=== PATIENT | male | born 1975 | race Caucasian/White ===

== ENCOUNTER 2018-09-26 12:39 | Inpatient (IN) | payer SELFPAY ==
--- NOTE | 2018-09-26 13:08 | ER Document Report ---
ED Medical Screen (RME) - General Chief Complaint: Shortness Of Breath Stated Complaint: SHORTNESS OF BREATH Time Seen by Provider: 09/26/18 13:06 Primary Care Provider: STEVIE BERRY [Primary Care Provider] - Follow up as needed Notes: Patient says he started feeling bad Thursday. Has had lower posterior thoracic back pain bilaterally since Thursday. Yesterday, Thursday, he was unable to go to work. [place] short of breath. Has little cough, but no phlegm produced. Says whenever he moves his head, he gets dizzy. Feels aching in all of his joints. No vomiting. Had some diarrhea yesterday and feels "bloated". No UTI symptoms. Has not had a fever, but has felt chills. He also has a little bit of a headache. Has not been exposed to anybody with major illness or the flu. No history of any significant surgeries except for trauma injury to his leg. On no regular prescription medications. In triage, heart rate 121. TRAVEL OUTSIDE OF THE [place] IN LAST 30 DAYS: No - Related Data Allergies/Adverse Reactions: No Known Allergies Allergy (Verified 06/23/12 11:11) Past Medical History - Past Medical History Cardiac Medical History: Denies: Hx Coronary Artery Disease, Hx Hypertension Pulmonary Medical History: Denies: Hx Asthma Endocrine Medical History: Denies: Hx Diabetes Mellitus Type 1, Hx Diabetes Mellitus Type 2 Renal/ Medical History: Denies: Hx Peritoneal Dialysis Traumatic Medical History: Reports: Hx Fractures Past Surgical History: Reports: Hx Orthopedic Surgery Physical Exam - Vital signs Vitals: Temp Pulse Resp BP Pulse Ox 98.8 F 121 H 18 130/84 H 100 09/26/18 12:46 09/26/18 12:46 09/26/18 12:46 09/26/18 12:46 09/26/18 12:46 Course - Vital Signs Vital signs: Temp Pulse Resp BP Pulse Ox 98.8 F 121 H 18 130/84 H 100 09/26/18 12:46 09/26/18 12:46 09/26/18 12:46 09/26/18 12:46 09/26/18 12:46 Doctor's Discharge - Discharge Referrals: STEVIE BERRY [Primary Care Provider] - Follow up as needed
[2018-09-26 13:49] LABS: ABSOLUTE BASOPHILS # (AUTO) 0.1 10^3/uL (0.0-0.2); ABSOLUTE EOSINOPHILS # (AUTO) 0.2 10^3/uL (0.0-0.6); ABSOLUTE LYMPHOCYTES (AUTO) 1.8 10^3/uL (0.5-4.7); ABSOLUTE MONOCYTES (AUTO) 1.1 10^3/uL (0.1-1.4); ABSOLUTE NEUT (AUTO) 6.1 10^3/uL (1.7-8.2); BASOPHILS % (AUTO) 0.7 % (0-2); EOSINOPHILS % (AUTO) 2.1 % (0-6); HEMATOCRIT 45.7 % (37.9-51.0); HEMOGLOBIN 15.8 g/dL (13.5-17.0); LYMPHOCYTES % (AUTO) 19.8 % (13-45); MEAN CORPUSCULAR HEMOGLOBIN 31.2 pg (27.0-33.4); MEAN CORPUSCULAR HGB CONC 34.5 g/dL (32.0-36.0); MEAN CORPUSCULAR VOLUME 90 fl (80-97); MONOCYTES % (AUTO) 12.2 % (3-13); PLATELET COUNT 197 10^3/uL (150-450); RED BLOOD COUNT 5.06 10^6/uL (4.35-5.55); RED CELL DISTRIBUTION WIDTH 12.7 % (11.5-14.0); SEGMENTED NEUTROPHILS % (AUTO) 65.2 % (42-78); TOTAL CELLS COUNTED % (AUTO) 100 %; WHITE BLOOD COUNT 9.3 10^3/uL (4.0-10.5)
--- NOTE | 2018-09-26 13:55 | RADIOLOGY REPORT (SQ) ---
EXAM DESCRIPTION: CHEST 2 VIEWS COMPLETED DATE/TIME: 09/26/2018 1:47 pm REASON FOR STUDY: Lower posterior thoracic back pain bilateral COMPARISON: None. EXAM PARAMETERS: NUMBER OF VIEWS: two views TECHNIQUE: Digital Frontal and Lateral radiographic views of the chest acquired. RADIATION DOSE: NA LIMITATIONS: none FINDINGS: LUNGS AND PLEURA: No opacities, masses or pneumothorax. No pleural effusion. MEDIASTINUM AND HILAR STRUCTURES: No masses or contour abnormalities. HEART AND VASCULAR STRUCTURES: Heart normal size. No evidence for failure. BONES: No acute findings. HARDWARE: None in the chest. OTHER: No other significant finding. IMPRESSION: No acute abnormality of the lungs. No radiographic findings to explain back pain. Cons ider dedicated imaging of the spine. TECHNICAL DOCUMENTATION: JOB ID: [id number] [employer]- All Rights Reserved Reading location - IP/workstation name: [email or web address]
[2018-09-26 13:57] LABS: ALANINE AMINOTRANSFERASE 70 U/L (21-72); ALBUMIN 4.4 g/dL (3.5-5.0); ALKALINE PHOSPHATASE 77 U/L (38-126); ANION GAP 12 (5-19); ASPARTATE AMINO TRANSFERASE 55 U/L (17-59); BILIRUBIN,DIRECT 0.3 mg/dL (0.0-0.4); BILIRUBIN,TOTAL 0.5 mg/dL (0.2-1.3); BLOOD UREA NITROGEN 8 mg/dL (7-20); CALCIUM 9.4 mg/dL (8.4-10.2); CARBON DIOXIDE 27 mmol/L (22-30); CHLORIDE 99 mmol/L (98-107); CREATINE KINASE 116 U/L (55-170); GLUCOSE 99 mg/dL (75-110); LIPASE 313.9 U/L (23-300); POTASSIUM 4.1 mmol/L (3.6-5.0); SODIUM 137.6 mmol/L (137-145); TOTAL PROTEIN 7.1 g/dL (6.3-8.2)
--- NOTE | 2018-09-26 14:20 | ER Document Report ---
ED General - General Chief Complaint: Shortness Of Breath Stated Complaint: SHORTNESS OF BREATH Time Seen by Provider: 09/26/18 13:06 Primary Care Provider: STEVIE BERRY [NO LOCAL MD] - Follow up as needed TRAVEL OUTSIDE OF THE [place] IN LAST 30 DAYS: No - HPI Notes: Patient is a 43-year-old male that presents to the emergency department for chief complaint of shortness of breath and back pain. Patient states 3 days ago he started having achy pain in his bilateral thoracic back. The pain is worse with movement and deep inspiration. The pain radiates down towards his tailbone when the pain gets severe. He reports associated shortness of breath at that time. He states that shortness of breath has continued to worsen. He denies any chest pain. States the pain feels like a pressure and dullness. He reports a mild nonproductive cough but denies any fevers or chills. He did recently start smoking again after being off of cigarettes for 5 years. He endorses daily alcohol consumption of 2-3 beers but denies any other chronic medical issues. He denies any recent surgery or immobilizations. Past Medical History: Negative Past Surgical History: Left tibial fracture repair Social History: 2-3 beers daily, daily tobacco, denies illicit drug use Family History: Reviewed and noncontributory for presenting illness Allergies: Reviewed, see documented allergy list. REVIEW OF SYSTEMS: CONSTITUTIONAL : No fever No chills No diaphoresis No recent illness EENT: No vision changes No congestion No sore throat CARDIOVASCULAR: No chest pain No palpitations RESPIRATORY: shortness of breath cough difficulty breathing GASTROINTESTINAL: No abdominal pain No nausea No vomiting No diarrhea GENITOURINARY: No dysuria No hematuria No difficulty urinating MUSCULOSKELETAL: back pain No leg pain No arm pain SKIN: No rashes No lesions LYMPHATIC: No swollen, enlarged glands. NEUROLOGICAL: No lightheadedness No headache No weakness No paresthesias PSYCHIATRIC: No anxiety No depression PHYSICAL EXAMINATION: Vital signs reviewed, nursing noted reviewed. GENERAL: Well-appearing, well-nourished and in no acute distress. HEAD: Atraumatic, normocephalic. EYES: Eyes appear normal, extraocular movements intact, sclera anicteric, conjunctiva are normal. ENT: nares patent, oropharynx clear without exudates. Moist mucous membranes. NECK: Normal range of motion, supple without lymphadenopathy LUNGS: Breath sounds clear to auscultation bilaterally but mildly diminished bilaterally. No accessory muscle use or tachypnea. Back: No midline spinal tenderness in the cervical, thoracic, or lumbar spine. Very mild bilateral paraspinal muscle tenderness in the thoracic region. No appreciable muscle spasms. HEART: Tachycardic rate and regular rhythm without murmurs. +2/4 bilateral radial and DP pulses ABDOMEN: Soft, nontender, normoactive bowel sounds. No rebound, guarding, or rigidity. No masses appreciated. EXTREMITIES: Nontender, good range of motion, no pitting or edema. NEUROLOGICAL: No focal neurological deficits. Moves all extremities spontaneously Motor and sensory grossly intact on exam. PSYCH: Normal mood, normal affect. SKIN: Warm, Dry, normal turgor, no rashes or lesions noted on exposed skin - Related Data Allergies/Adverse Reactions: No Known Allergies Allergy (Verified 06/23/12 11:11) Past Medical History - Social History Smoking Status: Current Every Day Smoker Family History: Reviewed & Not Pertinent Patient has suicidal ideation: No Patient has homicidal ideation: No - Past Medical History Cardiac Medical History: Denies: Hx Coronary Artery Disease, Hx Hypertension Pulmonary Medical History: Denies: Hx Asthma Endocrine Medical History: Denies: Hx Diabetes Mellitus Type 1, Hx Diabetes Me llitus Type 2 Renal/ Medical History: Denies: Hx Peritoneal Dialysis Traumatic Medical History: Reports: Hx Fractures Past Surgical History: Reports: Hx Orthopedic Surgery Physical Exam - Vital signs Vitals: Temp Pulse Resp BP Pulse Ox 98.8 F 121 H 18 130/84 H 100 09/26/18 12:46 09/26/18 12:46 09/26/18 12:46 09/26/18 12:46 09/26/18 12:46 Course - Re-evaluation Re-evalutation: 09/26/18 14:21 Vitals reviewed. Nursing notes reviewed. Patient has declined wanting any pain medication. 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 Patient has denied any chest pain. His EKG shows a sinus tachycardia with no ST elevations. Patient does have a slightly elevated d-dimer and troponin. With his symptoms radiating into his back down to his tailbone I am clinically concerned for possible aortic diss ection and aspirin will be held until CT imaging can be obtained. Patient symptoms may also be related to pulmonary embolism however he does not have any known risk factors for PE. He is in no acute respiratory distress at this time. Chest x-ray shows no pneumothorax or other acute cardiopulmonary process. Patient awaiting CT scan currently. 09/26/18 15:[address] scan shows no acute aortic dissection or pulmonary embolism. He was given aspirin and started on heparin infusion for N STEMI with his elevated troponin. On reevaluation patient states his pain is improved but not completely gone. He still describing it as an aching in his back. He is denying any anterior chest pain. Patient was given sublingual nitro for pain control. I discussed his care with Dr. Floyd who will not accept admission to this hospital without a second troponin. Patient second troponin will be drawn in 30 minutes. 09/26/18 17:50 Patient's pain did completely resolve after 2 sublingual nitroglycerin. His second troponin is slightly decreased at 0.457. Dr. Allison accepts patient for admission. - Vital Signs Vital signs: Temp Pulse Resp BP Pulse Ox 98.8 F 121 H 24 H 105/68 98 09/26/18 12:46 09/26/18 12:46 09/26/18 17:01 09/26/18 17:01 09/26/18 17:01 - Laboratory Result Diagrams: 09/26/18 13:22 09/26/18 13:22 Laboratory results interpreted by me: 09/26/18 09/26/18 13:22 13:22 D-Dimer 0.53 H Lipase 313.9 H - EKG Interpretation by Me Additional EKG results interpreted by me: 09/26/18 14:22 Interpreted by myself 1330: Sinus tachycardia, rate 109, normal axis, no ectopy, no ST elevation Discharge - Discharge Clinical Impression: NSTEMI (non-ST elevated myocardial infarction) Condition: Stable Disposition: ADMITTED INPATIENT Admitting Provider: Hospitalist Unit Admitted: [facility]
--- NOTE | 2018-09-26 15:20 | RADIOLOGY REPORT (SQ) ---
EXAM DESCRIPTION: CTA CHEST COMPLETED DATE/TIME: 09/26/2018 2:57 pm REASON FOR STUDY: dissection studyBack pain COMPARISON: Same day CTA abdomen pelvis TECHNIQUE: CT scan of the chest performed using helical scanning technique with dynamic intravenous contrast injection. Images reviewed with lung, soft tissue and bone windows. Reconstructed coronal and sagittal MPR images reviewed. Additional 3 dimensional post-processing performed to develop Maximal Intensity Projection images ([place] P). All images stored on PACS. All CT scanners at this facility use dose modulation, iterative reconstruction, and/or weight based d osing when appropriate to reduce radiation dose to as low as reasonably achievable (ALARA). [facility]: Dose Right [facility]: CareDose [facility]: Dose Right [facility]: Teradose 4D [facility]: If You Can CONTRAST TYPE AND DOSE: 75 mL IV of Omnipaque 350- low osmolar. Contrast bolus optimized for the aorta. Not diagnostic for the pulmonary arteries. RENAL FUNCTION: BUN 8 creatinine 0.92 RADIATION DOSE: . LIMITATIONS: None. FINDINGS: LUNGS AND PLEURA: No masses, infiltrates, or pneumothorax. No pleural effusions or pleura l calcifications. AORTA AND GREAT VESSELS: Mild ectasia of the ascending aorta measuring 4.0 cm in transverse dimension . No dissection. HEART: No pericardial effusion. No significant coronary artery calcifications. PULMONARY ARTERIES: Contrast is not optimized for evaluation of the pulmonary arteries. HILAR AND MEDIASTINAL STRUCTURES: No identified masses or abnormal nodes. HARDWARE: None in the chest. UPPER ABDOMEN: See separate report of the CT of the abdomen. THYROID AND OTHER SOFT TISSUES: No masses. No adenopathy. BONES: Mild degenerative disc disease of the thoracic spine. No sinister bone lesion. 3D MIPS: Confirm above findings. OTHER: No other significant finding. IMPRESSION: 1. No aortic dissection. Mild ectasia of the ascending aorta measuring 4 cm in transverse dimension. 2. Otherwise, no acute findings of the chest. COMMENT: Quality ID # [id number]: Final reports with documentation of one or more dose reduction techniques (e.g., Automated exposure control, adjustment of the mA and/or kV according to patient size, use of iterative reconstruction technique) TECHNICAL DOCUMENTATION: JOB ID: [id number] [employer]- All Rights Reserved Reading location - IP/workstation name: [email or web address]
--- NOTE | 2018-09-26 15:21 | RADIOLOGY REPORT (SQ) ---
EXAM DESCRIPTION: CTA ABDOMEN/PELVIS W WO COMPLETED DATE/TIME: 09/26/2018 2:57 pm REASON FOR STUDY: DISSECTIONChest and back pain, clinical concern for dissection COMPARISON: Concurrent CTA chest TECHNIQUE: CT scan of the abdominal aorta extending to the iliac bifurcation performed with intraven ous contrast using helical scanning technique with dynamic intravenous contrast injection. Images rev iewed with lung, soft tissue, and bone windows. Reconstructed coronal and sagittal MPR images reviewe d. All images stored on PACS. Advanced 3D imaging as volume rendering, MIPS, SSD performed? yes All CT scanners at this facility use dose modulation, iterative reconstruction, and/or weight based d osing when appropriate to reduce radiation dose to as low as reasonably achievable (ALARA). [facility]: Dose Right [facility]: CareDose [facility]: Dose Right [facility]: Teradose 4D [facility]: [employer] CONTRAST TYPE AND DOSE: contrast/concentration: Isovue 350.00 mg/ml; Total Contrast Delivered: 75.0 ml; Total Saline Delivered: 75.0 ml 75 mL IV of Omnipaque 350- low osmolar. RENAL FUNCTION: BUN 8 creatinine 0.92 LIMITATIONS: None. FINDINGS: AORTA AND VESSELS: No aneurysm. No dissection. Minimal scattered calcified plaque. Renal arteries, SMA, celiac without stenosis. LUNG BASES: See concurrent CT chest LIVER: Normal size. No masses or dilated ducts. SPLEEN: Normal size. No focal lesions. PANCREAS: No masses. No significant calcifications. No adjacent inflammation or peripancreatic fluid collections. Pancreatic duct not dilated. GALLBLADDER: No identified stones by CT criteria. No inflammatory changes to suggest cholecystitis. ADRENAL GLANDS: No significant masses or asymmetry. RIGHT KIDNEY AND URETER: No mass, calculi or urinary tract obstruction. LEFT KIDNEY AND URETER: No mass, calculi or urinary tract obstruction. RETROPERITONEUM: No retroperitoneal adenopathy, hemorrhage or masses. BOWEL AND PERITONEAL CAVITY: No dilated loops of bowel. No masses or inflammatory changes. No free fluid or peritoneal masses. APPENDIX: Normal. ABDOMINAL WALL: No masses. No hernias. BONY STRUCTURES: Mild degenerative disc disease of the lumbar spine. No acute fracture. No sinister bone lesion. 3-D IMAGING: Confirms the above findings. OTHER: Bilaterally enlarged inguinal lymph nodes measuring upwards of 1.4 cm in short axis diameter. There is fat stranding surrounding the right inguinal lymph nodes. IMPRESSION: 1. No acute findings within the abdomen or pelvis. Specifically, no abdominal aortic dissection or a neurysm. 2. Nonspecific bilateral inguinal lymphadenopathy, as above. 3. Mild degenerative disc disease of the lumbar spine. TECHNICAL DOCUMENTATION: JOB ID: [id number] Quality ID # [id number]: Final reports with documentation of one or more dose reduction techniques (e.g., Au tomated exposure control, adjustment of the mA and/or kV according to patient size, use of iterative reconstruction technique) 2010 [employer]- All Rights Reserved Reading location - IP/workstation name: [email or web address]
[2018-09-26] MEDS ORDERED: ASPIRIN 81 MG TABLET, CHEWABLE PO ONE (15:30)
[2018-09-26] MEDS ORDERED: HEPARIN SOD (PORCINE) 1,000 UNIT/ML 10 ML VIAL IV ONE (15:30)
[2018-09-26] MEDS ORDERED: HEPARIN SODIUM,PORCINE/D5W 25,000 UNIT/250 ML RTUINJ IV PRN (15:30)
[2018-09-26 15:40] LABS: INTERNATIONAL RATION (INR) 0.85; PROTHROMBIN TIME 12.1 SEC (11.4-15.4)
[2018-09-26 15:41] LABS: PARTIAL THROMBOPLASTIN TIME 35.4 SEC (23.5-35.8)
[2018-09-26 16:35] LABS: APPEARANCE,URINE CLEAR; BILIRUBIN,URINE NEGATIVE (NEGATIVE); COLOR,URINE YELLOW; GLUCOSE, URINE NEGATIVE (NEGATIVE); KETONES,URINE NEGATIVE (NEGATIVE); LEUKOCYTE ESTERASE,URINE NEGATIVE (NEGATIVE); NITRITE,URINE NEGATIVE (NEGATIVE); PROTEIN,URINE NEGATIVE (NEGATIVE); URINE SPECIFIC GRAVITY 1.028; UROBILINOGEN,URINE NEGATIVE mg/dL (<2.0)
[2018-09-26] MEDS: NITROGLYCERIN 0.4 MG/TAB 25 TAB/BOTTLE SL PRN ×2 (16:47→16:53)
[2018-09-26] MEDS ORDERED: OXYCODONE-ACETAMINOPHEN 5-325 MG TABLET PO PRN (18:23)
[2018-09-26] MEDS ORDERED: ONDANSETRON HCL INJ/PF 4 MG/2 ML SDV IV PRN (18:23)
[2018-09-26] MEDS ORDERED: HEPARIN SOD (PORCINE) 1,000 UNIT/ML 10 ML VIAL IV PRN (18:31)
[2018-09-26] MEDS ORDERED: CLOPIDOGREL BISULFATE 300 MG TABLET PO ONE (18:40)
--- NOTE | 2018-09-26 18:40 | PDOC H&P ---
History of Present Illness Admission Date/PCP: 09/26/18 17:59 History of Present Illness: EDWIN RAMIREZ is a 43 year old male patient with no significant medical history presents with chief complaint of chest pain localized to his back between the shoulder blades which radiates to his tailbone. He denies any fever, chills, palpitation or diaphoresis. He endorses intermittent nonproductive cough. Patient reports quit smoking 5 years ago and he relapsed and about 2-3 months ago. He drinks alcohol 2-3 beers on a daily basis. He CT scan of the chest and abdomen and pelvis are unremarkable. His blood work shows troponin of 0.475 and and the second set 0.457. Patient has been started on heparin drip as a case of non-STEMI. Past Medical History Cardiac Medical History: Denies: Coronary Artery Disease, Hypertension Pulmonary Medical History: Denies: Asthma Endocrine Medical History: Denies: Diabetes Mellitus Type 1, Diabetes Mellitus Type 2 Past Surgical History Past Surgical History: Reports: Orthopedic Surgery Social History Smoking Status: Current Every Day Smoker - Advance Directive Resuscitation Status: Full Code Family History Family History: Reviewed & Not Pertinent, DM Parental Family History Reviewed: Yes Children Family History Reviewed: Yes Sibling(s) Family History Reviewed.: Yes Medication/Allergy Home Medications: Cyclobenzaprine HCl [Flexeril 10 Mg Tablet] 10 mg PO TID #30 tablet 06/23/12 Oxycodone HCl/Acetaminophen [Percocet 5-325 mg Tablet] 1 - 2 tab PO ASDIR PRN # 15 tablet 06/23/12 Allergies/Adverse Reactions: No Known Allergies Allergy (Verified 06/23/12 11:11) Review of Systems Constitutional: ABSENT: chills, fever(s), headache(s), weight gain, weight loss Eyes: ABSENT: visual disturbances Ears: ABSENT: hearing changes Cardiovascular: PRESENT: chest pain Respiratory: ABSENT: cough, hemoptysis Gastrointestinal: ABSENT: abdominal pain, constipation, diarrhea, hematemesis, hematochezia, nausea, vomiting Genitourinary: ABSENT: dysuria, hematuria Musculoskeletal: ABSENT: joint swelling Integumentary: ABSENT: rash, wounds Neurological: ABSENT: abnormal gait, abnormal speech, confusion, dizziness, focal weakness, syncope Psychiatric: ABSENT: anxiety, depression, homidical ideation, suicidal ideation Endocrine: ABSENT: cold intolerance, heat intolerance, polydipsia, polyuria Hematologic/Lymphatic: ABSENT: easy bleeding, easy bruising Physical Exam Vital Signs: Temp Pulse Resp BP Pulse Ox 98.7 F 121 H 21 H 108/82 98 09/26/18 18:19 09/26/18 12:46 09/26/18 18:01 09/26/18 18:00 09/26/18 18:01 Intake & Output 09/25/18 09/26/18 09/27/18 06:59 06:59 06:59 Weight 92.4 kg General appearance: PRESENT: no acute distress, well-developed, well-nourished Head exam: PRESENT: atraumatic, normocephalic Eye exam: PRESENT: conjunctiva pink, EOMI, PERRLA. ABSENT: scleral icterus Ear exam: PRESENT: normal external ear exam Mouth exam: PRESENT: moist, tongue midline Neck exam: ABSENT: carotid bruit, JVD, lymphadenopathy, thyromegaly Respiratory exam: PRESENT: clear to auscultation henrik. ABSENT: rales, rhonchi, wheezes Cardiovascular exam: PRESENT: RRR. ABSENT: diastolic murmur, rubs, systolic murmur Pulses: PRESENT: normal dorsalis pedis pul Vascular exam: PRESENT: normal capillary refill GI/Abdominal exam: PRESENT: normal bowel sounds, soft. ABSENT: distended, guarding, mass, organolmegaly, rebound, tenderness Rectal exam: PRESENT: deferred Extremities exam: PRESENT: full ROM. ABSENT: calf tenderness, clubbing, pedal edema Neurological exam: PRESENT: alert, awake, oriented to person, oriented to place, oriented to time, oriented to situation, CN II-XII grossly intact. ABSENT: motor sensory deficit Psychiatric exam: PRESENT: appropriate affect, normal mood. ABSENT: homicidal ideation, suicidal ideation Skin exam: PRESENT: dry, intact, warm. ABSENT: cyanosis, rash Results Laboratory Results: 09/26/18 13:22 09/26/18 13:22 09/26/18 09/26/18 09/26/18 13:22 13:22 16:10 WBC 9.3 RBC 5.06 Hgb 15.8 Hct 45.7 MCV 90 MCH 31.2 MCHC 34.5 RDW 12.7 Plt Count 197 Seg Neutrophils % 65.2 Lymphocytes % 19.8 Monocytes % 12.2 Eosinophils % 2.1 Basophils % 0.7 Absolute Neutrophils 6.1 Absolute Lymphocytes 1.8 Absolute Monocytes 1.1 Absolute Eosinophils 0.2 Absolute Basophils 0.1 Sodium 137.6 Potassium 4.1 Chloride 99 Carbon Dioxide 27 Anion Gap 12 BUN 8 Creatinine 0.92 Est GFR ( Amer) > 60 Est GFR (Non-Af Amer) > 60 Glucose 99 Calcium 9.4 Total Bilirubin 0.5 AST 55 ALT 70 Alkaline Phosphatase 77 Total Protein 7.1 Albumin 4.4 Lipase 313.9 H Urine Color YELLOW Urine Appearance CLEAR Urine pH 6.0 Ur Specific [place] 1.028 Urine Protein NEGATIVE Urine Glucose (UA) NEGATIVE Urine Ketones NEGATIVE Urine Blood NEGATIVE Urine Nitrite NEGATIVE Ur Leukocyte Esterase NEGATIVE Urine WBC (Auto) 0 Urine RBC (Auto) 1 09/26/18 09/26/18 09/26/18 13:22 13:22 16:52 Creatine Kinase 116 Troponin I 0.475 0.457 Impressions: Chest X-Ray 09/26/18 13:06 IMPRESSION: No acute abnormality of the lungs. No radiographic findings to explain back pain. Consider dedicated imaging of the spine. Chest/Abdomen CTA 09/26/18 14:05 IMPRESSION: 1. No aortic dissection. Mild ectasia of the ascending aorta measuring 4 cm in transverse dimension. 2. Otherwise, no acute findings of the chest. Abdomen/Pelvis CTA 09/26/18 14:20 IMPRESSION: 1. No acute findings within the abdomen or pelvis. Specifically, no abdominal aortic dissection or aneurysm. 2. Nonspecific bilateral inguinal lymphadenopathy, as above. 3. Mild degenerative disc disease of the lumbar spine. Assessment & Plan - Diagnosis (1) Non-STEMI (non-ST elevated myocardial infarction) Is this a current diagnosis for this admission?: Yes Plan: We will admit this patient was telemetry floor with inpatient status. I will continue the heparin drip. We will start him on Lipitor, metoprolol aspirin and Plavix. Stress test in a.m. Consult cardiology. - Inpatient Certification Medical Necessity: Need Close Monitoring Due to Risk of Patient Decompensation
--- NOTE | 2018-09-26 20:56 | XCELERA REPORT ---
[address] [address] Transthoracic Echocardiogram Report Name: EDWIN RAMIREZ Age: 43 yrs Gender: Male : 1975 Patient Status: Inpatient Patient Location: [place] [address]^A Study Date: 09/26/2018 07:46 PM Height: 69 in Weight: 190 lb BSA: 2.0 m2 Reason For Study: NSTEMI Ordering Physician: WALE BARRAZA Performed By: Sammy Yusuf Interpretation Summary Study quality fair with soem suboptimal images. LVEF appears low normal at 50-55%. RV systolic function appears low normal. The transmitral spectral Doppler flow pattern is abnormal for age AV leaflets not well visualized but likely trileaflet. There is a mild to moderate amount of aortic regurgitation There is a trace to mild amount of mitral regurgitation RVSP could not be estimated. There is no pericardial effusion. The aortic root is normal size. The inferior vena cava appeared small and collapsed with respiration (RAP 0-5 mmHg) MMode/2D Measurements & Calculations RVDd: 3.1 cm LVIDd: 4.6 cm FS: 19.0 % Ao root diam: 2.9 cm IVSd: 0.84 cm LVIDs: 3.7 cm EDV(Teich): 95.9 mlAo root area: LVPWd: 0.81 cm ESV(Teich): 58.2 ml 6.8 cm2 EF(Teich): 39.3 % LA dimension: 3.5 cm LVOT diam: 1.8 cm LVLd ap4: 7.7 cm SV(MOD-sp4): LVOT area: EDV(MOD-sp4): 43.0 ml 89.0 ml 2.7 cm2 LVLs ap4: 7.3 cm ESV(MOD-sp4): 46.0 ml EF(MOD-sp4): 48.3 % Doppler Measurements & Calculations MV E max marco antonio: MV P1/2t max marco antonio: Ao V2 max: AI max marco antonio: 59.8 cm/sec 130.3 cm/sec 188.5 cm/sec 375.5 cm/sec MV A max marco antonio: MV P1/2t: 56.4 msec Ao max PG: AI max P.3 cm/sec MVA(P1/2t): 3.9 cm2 14.2 mmHg 56.4 mmHg MV E/A: 0.77 MV dec slope: Ao V2 mean: AI dec slope: 138.6 cm/sec 192.3 cm/sec2 676.9 cm/sec2 Ao mean PG: AI P1/2t: MV dec time: 0.13 sec8.5 mmHg 571.9 msec Ao V2 VTI: 31.7 cm TANIYA(I,D): 1.5 cm2 TANIYA(V,D): 1.4 cm2 LV V1 max PG: SV(LVOT): 46.3 ml PA V2 max: AV P1/2t-pr_phl: 4.1 mmHg 80.8 cm/sec 571.9 msec LV V1 mean PG: PA max P.3 mmHg 2.6 mmHg LV V1 max: 101.4 cm/sec LV V1 mean: 69.9 cm/sec LV V1 VTI: 17.5 cm MV P1/2t-pr_phl: 56.4 msec Left Ventricle The left ventricular ejection fraction is normal. LV EF is 50-55%.%. The transmitral spectral Doppler flow pattern is abnormal for age. Right Ventricle A moderator band is seen in the right ventricle. The right ventricular systolic function is normal. Atria The right atrium is normal in size. The left atrial size is normal. Mitral Valve MV leaflets apppear to open well. There is a trace to mild amount of mitral regurgitation. Aortic Valve AV leaflets not well visualized but likely trileaflet. There is a peak gradient of 14 mm of Hg. There is a mild to moderate amount of aortic regurgitation. Tricuspid Valve The tricuspid valve is not well visualized secondary to technical limitations. Tricuspid regurgitation jet envelope not well defined to measure RV systolic pressure accurately. RVSP could not be estimated. Pulmonic Valve The pulmonic valve is not well visualized. Great Vessels The aortic root is normal size. The inferior vena cava appeared small and collapsed with respiration (RAP 0-5 mmHg). Effusions There is no pericardial effusion. : WALE BARRAZA > Wale Barraza
--- NOTE | 2018-09-26 21:12 | PDOC CONSULTATION ---
Consultation Consult Date: 09/26/18 Consult reason:: chest pain History of Present Illness Admission Date/PCP: 09/26/18 17:59 History of Present Illness: EDWIN RAMIREZ is a 43 year old male with past medical history of polysubstance abuse comes in with complaints of not feeling well for the last 2 days with generalized body aches and a dry cough and initially when he came to the ER he complained of chest pain radiating to the back. Patient does manual labor with sheetrock placement and is otherwise very active and has not been himself for the last 2 days per his . He does complain of shortness of breath on exertion. He denies any history of any fever or or dizziness or palpitations. According to the patient he used to abuse recreational drugs anything that he could get his hands on including opioids, cocaine etc. and quit last April. He used to smoke heavily but quit for 5 years and then recently started smoking again. He claims that he drinks beer every day. He denies any family history of coronary artery disease. He is but currently from his and has 4 kids. Past Medical History Cardiac Medical History: Reports: None Denies: Coronary Artery Disease, Hypertension Pulmonary Medical History: Reports: None Denies: Asthma EENT Medical History: Reports: None Neurological Medical History: Reports: None Endocrine Medical History: Reports: None Denies: Diabetes Mellitus Type 1, Diabetes Mellitus Type 2 Psychiatric Medical History: Reports: Alcohol Dependency, Substance Abuse, Tobacco Dependency Past Surgical History Past Surgical History: Reports: Orthopedic Surgery Social History Information Source: Patient Lives with: Family Smoking Status: Current Every Day Smoker Frequency of Alcohol Use: Heavy Hx Recreational Drug Use: Yes Drugs: Cocaine, Heroin Hx Prescription Drug Abuse: Yes - quit few months ago - Advance Directive Resuscitation Status: Full Code Family History Family History: None, Reviewed & Not Pertinent, DM Parental Family History Reviewed: Yes Children Family History Reviewed: No Sibling(s) Family History Reviewed.: Yes Medication/Allergy Home Medications: Cyclobenzaprine HCl [Flexeril 10 Mg Tablet] 10 mg PO TID #30 tablet 06/23/12 Oxycodone HCl/Acetaminophen [Percocet 5-325 mg Tablet] 1 - 2 tab PO ASDIR PRN #15 tablet 06/23/12 Allergies/Adverse Reactions: No Known Allergies Allergy (Verified 06/23/12 11:11) Review of Systems Constitutional: PRESENT: fatigue Cardiovascular: PRESENT: chest pain, dyspnea on exertion Respiratory: PRESENT: cough Musculoskeletal: PRESENT: back pain Physical Exam Vital Signs: Temp Pulse Resp BP Pulse Ox 98.7 F 101 H 20 105/85 99 09/26/18 18:19 09/26/18 19:01 09/26/18 20:01 09/26/18 20:00 09/26/18 20:51 Intake & Output 09/25/18 09/26/18 09/27/18 06:59 06:59 06:59 Weight 92.4 kg General appearance: PRESENT: no acute distress Head exam: PRESENT: atraumatic, normocephalic Neck exam: PRESENT: full ROM Respiratory exam: PRESENT: clear to auscultation henrik Cardiovascular exam: PRESENT: diastolic murmur, +S1, +S2 Pulses: PRESENT: normal carotid pulses, normal radial pulses, normal dorsalis pedis pul Neurological exam: PRESENT: alert, altered, awake, oriented to time, oriented to situation Results Laboratory Results: 09/26/18 13:22 09/26/18 13:22 09/26/18 09/26/18 09/26/18 13:22 13:22 16:10 WBC 9.3 RBC 5.06 Hgb 15.8 Hct 45.7 MCV 90 MCH 31.2 MCHC 34.5 RDW 12.7 Plt Count 197 Seg Neutrophils % 65.2 Lymphocytes % 19.8 Monocytes % 12.2 Eosinophils % 2.1 Basophils % 0.7 Absolute Neutrophils 6.1 Absolute Lymphocytes 1.8 Absolute Monocytes 1.1 Absolute Eosinophils 0.2 Absolute Basophils 0.1 Sodium 137.6 Potassium 4.1 Chloride 99 Carbon Dioxide 27 Anion Gap 12 BUN 8 Creatinine 0.92 Est GFR ( Amer) > 60 Est GFR (Non-Af Amer) > 60 Glucose 99 Calcium 9.4 Total Bilirubin 0.5 AST 55 ALT 70 Alkaline Phosphatase 77 Total Protein 7.1 Albumin 4.4 Lipase 313.9 H Urine Color YELLOW Urine Appearance CLEAR Urine pH 6.0 Ur Specific [place] 1.028 Urine Protein NEGATIVE Urine Glucose (UA) NEGATIVE Urine Ketones NEGATIVE Urine Blood NEGATIVE Urine Nitrite NEGATIVE Ur Leukocyte Esterase NEGATIVE Urine WBC (Auto) 0 Urine RBC (Auto) 1 09/26/18 09/26/18 09/26/18 13:22 13:22 16:52 Creatine Kinase 116 Troponin I 0.475 0.457 Impressions: Chest X-Ray 09/26/18 13:06 IMPRESSION: No acute abnormality of the lungs. No radiographic findings to explain back pain. Consider dedicated imaging of the spine. Chest/Abdomen CTA 09/26/18 14:05 IMPRESSION: 1. No aortic dissection. Mild ectasia of the ascending aorta measuring 4 cm in transverse dimension. 2. Otherwise, no acute findings of the chest. Abdomen/Pelvis CTA 09/26/18 14:20 IMPRESSION: 1. No acute findings within the abdomen or pelvis. Specifically, no abdominal aortic dissection or aneurysm. 2. Nonspecific bilateral inguinal lymphadenopathy, as above. 3. Mild degenerative disc disease of the lumbar spine. Assessment & Plan - Diagnosis (1) Chest pain Is this a current diagnosis for this admission?: Yes (2) Non-STEMI (non-ST elevated myocardial infarction) Is this a current diagnosis for this admission?: Yes - Notes Notes: Reviewed EKG, labs and imaging tests. EKG shows sinus rhythm with subtle diffuse ST elevation which could represent early repolarization versus pericarditis. Patient with history of polysubstance abuse including cigarette smoking comes in with chest pain radiating to the back and aortic dissection has been ruled out by CAT scan of the chest and abdomen. His generalized malaise and weakness along with dyspnea on exertion could be anginal equivalent symptom and with his elevated cardiac biomarkers he needs to be ruled out for obstructive coronary artery disease with invasive coronary angiography. Differential diagnosis for his clinical picture could be pericarditis. Echocardiogram shows low normal EF with mild to moderate aortic regurgitation and diastolic dysfunction. Lack of contrast limits evaluation for wall motion. Discussed differential diagnosis with family and need for ruling out obstructive coronary artery disease in the agreeable for transfer for cardiac catheterization to [place]. Recommend aspirin, statin, low-dose beta-anne marie if blood pressure tolerates and systemic anticoagulation at this point. Spoke to cardiac connections in [place] who are making a bed for him. Discussed lifestyle modifications with the patient. - Time Time Spent: 50 to 70 Minutes
[2018-09-26] MEDS ORDERED: METOPROLOL TARTRATE 50 MG TABLET PO SCH (22:00)
[2018-09-26] MEDS ORDERED: ATORVASTATIN CALCIUM 20 MG TABLET PO SCH (22:00)
[2018-09-26 22:16] VITALS: BP 110/88
--- NOTE | 2018-09-26 22:53 | PDOC TRANSFER SUMMARY ---
General Admission Date/PCP: 09/26/18 17:59 Admission Date: 09/26/18 Transfer Date: 09/26/18 Accepting Facility: [facility] Resuscitation Status: Full Code - Transfer Diagnosis (1) Non-STEMI (non-ST elevated myocardial infarction) Is this a current diagnosis for this admission?: Yes Diagnosis Summary: Heparin Plavix and aspirin initiated. Cardiology consult obtained recommending transfer to tertiary care for cardiac catheterization. (2) Chest pain Is this a current diagnosis for this admission?: Yes Diagnosis Summary: Pain-free - Transfer Medications Transfer Medications: Current Medications Atorvastatin Calcium (Lipitor 20 Mg Tablet) 40 mg PO QHS RAMSES Stop: 10/26/18 21:59 Last Admin: 09/26/18 22:29 Dose: 40 mg Documented by: Heparin Sodium (Porcine) (Heparin Inj 1,000 Unit/Ml 10 Ml Vial) 0 - 12,000 unit IV .BOLUS PER PROTOCOL PRN; Protocol PRN Reason: RESPOND TO aPTT VALUE Stop: 10/26/18 18:30 Heparin Sodium/Dextrose (Heparin Rtu 25,000 Unit/250 Ml D5w Premix) 25,000 unit in 250 mls @ 0 mls/hr IV CONTINUOUS PRN; Protocol PRN Reason: THIS MED IS NOT "PRN" Stop: 10/26/18 15:29 Last Admin: 09/26/18 16:57 Dose: 1,000 unit/hr, 10 mls/hr Documented by: Metoprolol Tartrate (Lopressor 50 Mg Tablet) 25 mg PO Q12 RAMSES Stop: 10/26/18 21:59 Last Admin: 09/26/18 22:30 Dose: 25 mg Documented by: Ondansetron HCl (Zofran Inj/Pf 4 Mg/2 Ml Sdv) 4 mg IV Q4HP PRN PRN Reason: FOR NAUSEA/VOMITING Stop: 10/26/18 18:22 Oxycodone/Acetaminophen (Percocet 5-325 Mg Tablet) 1 tab PO Q4HP PRN PRN Reason: FOR CHEST PAIN Stop: 10/03/18 18:22 - Allergies Allergies/Adverse Reactions: No Known Allergies Allergy (Verified 06/23/12 11:11) Hospital Course Hospital Course: Admitted with chest pain, troponin of 0.47 with subtle and diffuse ST elevation suggestive of early repolarization versus pericarditis. Started on heparin, Plavix, aspirin and nitroglycerin as needed he is pain-free with vitals stable for transfer to tertiary care for cardiac catheterization. Physical Exam Vital Signs: Temp Pulse Resp BP Pulse Ox 97.8 F 83 20 110/88 H 97 09/26/18 21:33 09/26/18 21:33 09/26/18 21:33 09/26/18 21:33 09/26/18 21:33 Intake & Output 09/25/18 09/26/18 09/27/18 11:59 11:59 11:59 Weight 92.4 kg Results Laboratory Results: 09/26/18 13:22 09/26/18 13:22 09/26/18 09/26/18 09/26/18 13:22 13:22 16:10 WBC 9.3 RBC 5.06 Hgb 15.8 Hct 45.7 MCV 90 MCH 31.2 MCHC 34.5 RDW 12.7 Plt Count 197 Seg Neutrophils % 65.2 Lymphocytes % 19.8 Monocytes % 12.2 Eosinophils % 2.1 Basophils % 0.7 Absolute Neutrophils 6.1 Absolute Lymphocytes 1.8 Absolute Monocytes 1.1 Absolute Eosinophils 0.2 Absolute Basophils 0.1 Sodium 137.6 Potassium 4.1 Chloride 99 Carbon Dioxide 27 Anion Gap 12 BUN 8 Creatinine 0.92 Est GFR ( Amer) > 60 Est GFR (Non-Af Amer) > 60 Glucose 99 Calcium 9.4 Total Bilirubin 0.5 AST 55 ALT 70 Alkaline Phosphatase 77 Total Protein 7.1 Albumin 4.4 Lipase 313.9 H Urine Color YELLOW Urine Appearance CLEAR Urine pH 6.0 Ur Specific [place] 1.028 Urine Protein NEGATIVE Urine Glucose (UA) NEGATIVE Urine Ketones NEGATIVE Urine Blood NEGATIVE Urine Nitrite NEGATIVE Ur Leukocyte Esterase NEGATIVE Urine WBC (Auto) 0 Urine RBC (Auto) 1 09/26/18 09/26/18 09/26/18 13:22 13:22 16:52 Creatine Kinase 116 Troponin I 0.475 0.457 09/26/18 20:46 Creatine Kinase Troponin I 0.380 Impressions: Chest X-Ray 09/26/18 13:06 IMPRESSION: No acute abnormality of the lungs. No radiographic findings to explain back pain. Consider dedicated imaging of the spine. Chest/Abdomen CTA 09/26/18 14:05 IMPRESSION: 1. No aortic dissection. Mild ectasia of the ascending aorta measuring 4 cm in transverse dimension. 2. Otherwise, no acute findings of the chest. Abdomen/Pelvis CTA 09/26/18 14:20 IMPRESSION: 1. No acute findings within the abdomen or pelvis. Specifically, no abdominal aortic dissection or aneurysm. 2. Nonspecific bilateral inguinal lymphadenopathy, as above. 3. Mild degenerative disc disease of the lumbar spine. Plan Discharge Plan: Transfer to tertiary care in [place] underway. Time Spent: Less than 30 Minutes
--- NOTE | 2018-09-27 06:10 | EKG REPORT ---
SEVERITY:- OTHERWISE NORMAL ECG - SINUS TACHYCARDIA : Confirmed by: Johnny Solitario MD 27-Sep-2018 06:08:58
== END 2018-09-27 00:15 | disposition short-term general hospital (02) | DRG 282 ==
LOC: ER 12:39 → EH 17:59 → 3S 21:19
PROVIDERS: ADMIT Internal Medicine; ATTEND Internal Medicine
DX: I21.4 Non-ST elevation (NSTEMI) myocardial infarction (principal); F17.210 Nicotine dependence, cigarettes, uncomplicated; F10.20 Alcohol dependence, uncomplicated; F19.10 Other psychoactive substance abuse, uncomplicated; I35.1 Nonrheumatic aortic (valve) insufficiency; Z83.3 Family history of diabetes mellitus
CPT/HCPCS: 36415; 71046; 71275; 74174; 80053; 81001; 82550; 83690; 84484; 85025; 85379; 85610; 85730; 87040; 93005; 93010; 93306; 96365; 96376; 99285; J1644; J3490

== ENCOUNTER 2018-12-17 15:48 | Emergency (ER) | payer SELFPAY ==
[2018-12-17] MEDS ORDERED: DEXTROSE 50%-WATER 25 GM/50 ML DISP.SYRIN IV ONE ×3 (15:56→21:22)
[2018-12-17] MEDS ORDERED: NALOXONE HCL INJ 2 MG/2 ML DISP.SYRIN ONE (15:56)
[2018-12-17] MEDS ORDERED: LORAZEPAM INJ 2 MG/1 ML VIAL ONE (16:05)
[2018-12-17] MEDS ORDERED: NORMAL SALINE 1000 ML 1,000 ML IV ONE ×2 (16:13→21:25)
--- NOTE | 2018-12-17 16:23 | ER Document Report ---
ED General - General Chief Complaint: Unresponsive Stated Complaint: POSSIBLE OVERDOSE Time Seen by Provider: 12/17/18 15:57 Notes: Patient is a 43-year-old male with history of multi-substance abuse that presents to the emergency department for chief complaint of altered mental status and possible overdose. History provided by EMS, apparently the patient was found unresponsive, was given 1 mg of Narcan, patient became rather agitated, combative, is therefore then given 400 mg of IM ketamine, patient became rather sedated at this point had to have [id number] assisted breaths. They reportedly found drug paraphernalia related to heroin, possible methamphetamines and PCP. No other history obtainable at this time secondary to the patient's altered mental state. Patient's brother did come to bedside, apparently the patient has been using fentanyl recently, and has overdosed several times in the way that he comes back from his overdose is his friend who also uses drugs will inject him with methamphetamines, which apparently is what happened today. 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 The patient apparently drinks on a daily basis as well, when he wakes up he starts drinking. They report that he has not been eating or drinking much recently, and not sleeping at all. Past Medical History: substance abuse Past Surgical History: Not obtainable at this time Social History: Positive for history of opiate and methamphetamine abuse Family History: Not obtainable at this time Allergies: Reviewed, see documented allergy list. REVIEW OF SYSTEMS: Complete review of systems is not obtainable at this time secondary to the patient's mental state. PHYSICAL EXAMINATION: Vital signs reviewed, nursing noted reviewed. GENERAL: Patient is somnolent, borderline responsive, increased work of breathing HEAD: Atraumatic, normocephalic. EYES: extraocular movements intact, sclera anicteric, conjunctiva are normal. Pupils constricted, but reactive to light ENT: nares patent, oropharynx clear without exudates. Moist mucous membranes. Poor dentition. NECK: supple without lymphadenopathy LUNGS: Coarse lung sounds, sonorous breathing, with rapid rate HEART: Heart rate tachycardic, regular rhythm ABDOMEN: Soft, nondistended, not apparently tender, normoactive bowel sounds. No rebound, guarding, or rigidity. No masses appreciated. EXTREMITIES: Nontender, good range of motion, no pitting or edema. NEUROLOGICAL: We will withdrawal all extremities to painful stimuli, will open eyes to painful stimuli initially, but then this decreased, his GCS did drop to 8. PSYCH: Altered, somnolent SKIN: Cool, diaphoretic, no lesions noted. TRAVEL OUTSIDE OF THE [place] IN LAST 30 DAYS: No - Related Data Allergies/Adverse Reactions: No Known Allergies Allergy (Verified 06/23/12 11:11) Past Medical History - Social History Smoking Status: Current Every Day Smoker Family History: None, Reviewed & Not Pertinent, DM - Past Medical History Cardiac Medical History: Denies: Hx Coronary Artery Disease, Hx Hypertension Pulmonary Medical History: Denies: Hx Asthma Endocrine Medical History: Denies: Hx Diabetes Mellitus Type 1, Hx Diabetes Mellitus Type 2 Renal/ Medical History: Denies: Hx Peritoneal Dialysis Psychiatric Medical History: Reports: Hx Depression Traumatic Medical History: Reports: Hx Fractures Past Surgical History: Reports: Hx Orthopedic Surgery Physical Exam - Vital signs Vitals: Temp Resp 98.5 F 40 H 12/17/18 15:53 12/17/18 15:53 Course - Re-evaluation Re-evalutation: Patient seen and examined vital signs reviewed. Laboratory data and imaging were ordered as appropriate for the patient's presenting symptoms and complaint, with consideration of any critical or life threatening conditions that may be associated with their obtained history and exam as noted above. Patient was treated with IV fluids, and Narcan 1 mg initially, patient became more alert to degree, but was breathing rather heavily and rapidly, he had received 400 mg of IM ketamine by EMS, due to the patient's increased agitation and rapid breathing, he was given Ativan 2 mg, which did seem to improve his symptoms to a degree, but patient was still rather altered, and not responding to commands, he continued to be monitored for about an hour, given submental oxygen, but the patient was not becoming more responsive, despite waiting for medications to wear off, and suspected illicit drugs including methamphetamine and opiates. During this time, a Lopes catheter was placed, patient's urine was noted to be rather dark, was sent off for UA and urine drug tox, which did demonstrate acidotic urine, with blood in the urine, concerning for rhabdomyolysis, patient was already receiving IV fluids, and was started on IV sodium bicarbonate infusion. At this point because the patient was not improving and his GCS was 7, I decided to intubate the patient using etomidate 20 mg, and rocuronium 75 mg, patient was successfully intubated, placed on the ventilator. CT of the head was obtained, which was negative for any acute process. Blood work initially only resulted a CBC, due to hemolysis of the sample, CBC demonstrated a leukocytosis of 19,000, with a shift toward neutrophils and 6 bands, I did attempt lumbar puncture, however this was unsuccessful, patient was in decubitus position, and noted to have scoliosis, and could not get CSF sample, therefore this procedure was aborted. Patient was prophylactically given Rocephin and vancomycin although suspicion for meningitis is low in this p atient given multiple other reasons for him to be encephalopathic including multi substance abuse and overdose, and rhabdomyolysis. Patient's chemistry did finally come back, demonstrated a potassium of 7, with a CK of greater than 100,000, troponin was elevated at 0.9, presumably from rhabdomyolysis, versus type II NSTEMI, from supply demand mismatch, from tachycardia, methamphetamine use and abuse. Patient was given a total of 4 L of IV fluid bolus, in addition to being on IV sodium bicarbonate infusion, and was given potassium she has medications including 3000 mg of calcium gluconate, an additional amp of sodium bicarbonate, IV insulin, and D50. Patient was reevaluated monitored several times throughout his ED course, and from a hemodynamic standpoint, did stabilize. Evaluation was most consistent with acute encephalopathy, acute rhabdomyolysis, acute renal failure, transaminitis, acute respiratory failure, methamphetamine overdose, opiate overdose. Patient case was discussed with Dr. Gallego, in the MICU, at [facility], who graciously except the patient onto their service for transfer, requested air ALS transfer for this patient. *Note is created using voice recognition software and may contain spelling, syntax or grammatical errors. Laboratory 12/17/18 12/17/18 12/17/18 15:55 16:19 16:19 WBC 19.2 H RBC 5.47 Hgb 16.1 Hct 49.0 MCV 90 MCH 29.5 MCHC 32.9 RDW 12.9 Plt Count 337 Total Counted 100 Seg Neutrophils % Not Reportable Seg Neuts % (Manual) 86 H Band Neutrophils % 6 H Lymphocytes % Not Reportable Lymphocytes % (Manual) 6 L Monocytes % Not Reportable Monocytes % (Manual) 2 L Eosinophils % Not Reportable Eosinophils % (Manual) 0 Basophils % Not Reportable Basophils % (Manual) 0 Absolute Neutrophils Not Reportable Abs Neuts (Manual) 17.7 H Absolute Lymphocytes Not Reportable Abs Lymphs (Manual) 1.2 Absolute Monocytes Not Reportable Abs Monocytes (Manual) 0.4 Absolute Eosinophils Not Reportable Absolute Eos (Manual) 0.0 Absolute Basophils Not Reportable Abs Basophils (Manual) 0.0 Clumped Platelets PRESENT Platelet Comment Not Reportable RBC Morph Comment NORMO-CYTIC/CHROMIC PT INR Carbonic Acid HCO3/H2CO3 Ratio ABG pH ABG pCO2 ABG pO2 ABG HCO3 ABG Total CO2 ABG O2 Saturation ABG Base Excess FiO2 Sodium Cancelled Potassium Cancelled Chloride Cancelled Carbon Dioxide Cancelled Anion Gap Cancelled BUN Cancelled Creatinine Cancelled Est GFR ( Amer) Cancelled Est GFR (Non-Af Amer) Cancelled Glucose Cancelled POC Glucose 56 L Calcium Cancelled Total Bilirubin Cancelled Direct Bilirubin Cancelled Neonat Total Bilirubin Cancelled Neonat Direct Bilirubin Cancelled Neonat Indirect Bili Cancelled AST Cancelled ALT Cancelled Alkaline Phosphatase Cancelled Creatine Kinase Cancelled Troponin I Total Protein Cancelled Albumin Cancelled Urine Color Urine Appearance Urine pH Ur Specific [place] Urine Protein Urine Glucose (UA) Urine Ketones Urine Blood Urine Nitrite Urine Bilirubin Urine Urobilinogen Ur Leukocyte Esterase Urine WBC (Auto) Urine RBC (Auto) U Hyaline Cast (Auto) Urine Bacteria (Auto) Squamous Epi Cells Auto Urine Mucus (Auto) Urine Ascorbic Acid Salicylates Cancelled Urine Opiates Screen Urine Methadone Screen Acetaminophen Cancelled Ur Barbiturates Screen Ur Phencyclidine Scrn Ur Amphetamines Screen U Benzodiazepines Scrn Urine Cocaine Screen U Marijuana (THC) Screen Serum Alcohol Cancelled 12/17/18 12/17/18 12/17/18 16:19 17:10 17:10 WBC RBC Hgb Hct MCV MCH MCHC RDW Plt Count Total Counted Seg Neutrophils % Seg Neuts % (Manual) Band Neutrophils % Lymphocytes % Lymphocytes % (Manual) Monocytes % Monocytes % (Manual) Eosinophils % Eosinophils % (Manual) Basophils % Basophils % (Manual) Absolute Neutrophils Abs Neuts (Manual) Absolute Lymphocytes Abs Lymphs (Manual) Absolute Monocytes Abs Monocytes (Manual) Absolute Eosinophils Absolute Eos (Manual) Absolute Basophils Abs Basophils (Manual) Clumped Platelets Platelet Comment RBC Morph Comment PT INR Carbonic Acid HCO3/H2CO3 Ratio ABG pH ABG pCO2 ABG pO2 ABG HCO3 ABG Total CO2 ABG O2 Saturation ABG Base Excess FiO2 Sodium Potassium Chloride Carbon Dioxide Anion Gap BUN Creatinine Est GFR ( Amer) Est GFR (Non-Af Amer) Glucose POC Glucose Calcium Total Bilirubin Direct Bilirubin Neonat Total Bilirubin Neonat Direct Bilirubin Neonat Indirect Bili AST ALT Alkaline Phosphatase Creatine Kinase Troponin I Cancelled Total Protein Albumin Urine Color YELLOW Urine Appearance CLOUDY Urine pH 5.0 Ur Specific [place] 1.013 Urine Protein 100 H Urine Glucose (UA) NEGATIVE Urine Ketones NEGATIVE Urine Blood LARGE H Urine Nitrite NEGATIVE Urine Bilirubin NEGATIVE Urine Urobilinogen NEGATIVE Ur Leukocyte Esterase NEGATIVE Urine WBC (Auto) 5 Urine RBC (Auto) 2 U Hyaline Cast (Auto) 16 Urine Bacteria (Auto) TRACE Squamous Epi Cells Auto 1 Urine Mucus (Auto) MANY Urine Ascorbic Acid NEGATIVE Salicylates Urine Opiates Screen UNCONFIRMED POSITIVE Urine Methadone Screen NEGATIVE Acetaminophen Ur Barbiturates Screen NEGATIVE Ur Phencyclidine Scrn NEGATIVE Ur Amphetamines Screen U Benzodiazepines Scrn NEGATIVE Urine Cocaine Screen NEGATIVE U Marijuana (THC) Screen NEGATIVE Serum Alcohol 12/17/18 12/17/18 12/17/18 17:34 17:34 18:50 WBC RBC Hgb Hct MCV MCH MCHC RDW Plt Count Total Counted Seg Neutrophils % Seg Neuts % (Manual) Band Neutrophils % Lymphocytes % Lymphocytes % (Manual) Monocytes % Monocytes % (Manual) Eosinophils % Eosinophils % (Manual) Basophils % Basophils % (Manual) Absolute Neutrophils Abs Neuts (Manual) Absolute Lymphocytes Abs Lymphs (Manual) Absolute Monocytes Abs Monocytes (Manual) Absolute Eosinophils Absolute Eos (Manual) Absolute Basophils Abs Basophils (Manual) Clumped Platelets Platelet Comment RBC Morph Comment PT INR Carbonic Acid 1.30 HCO3/H2CO3 Ratio 13:1 ABG pH 7.24 L ABG pCO2 43.1 ABG pO2 161.2 H ABG HCO3 18.1 L ABG Total CO2 19.4 L ABG O2 Saturation 98.8 H ABG Base Excess -9.0 FiO2 40% Sodium Cancelled Potassium Cancelled Chloride Cancelled Carbon Dioxide Cancelled Anion Gap Cancelled BUN Cancelled Creatinine Cancelled Est GFR ( Amer) Cancelled Est GFR (Non-Af Amer) Cancelled Glucose Cancelled POC Glucose Calcium Cancelled Total Bilirubin Cancelled Direct Bilirubin Cancelled Neonat Total Bilirubin Cancelled Neonat Direct Bilirubin Cancelled Neonat Indirect Bili Cancelled AST Cancelled ALT Cancelled Alkaline Phosphatase Cancelled Creatine Kinase Cancelled Troponin I Cancelled Total Protein Cancelled Albumin Cancelled Urine Color Urine Appearance Urine pH Ur Specific [place] Urine Protein Urine Glucose (UA) Urine Ketones Urine Blood Urine Nitrite Urine Bilirubin Urine Urobilinogen Ur Leukocyte Esterase Urine WBC (Auto) Urine RBC (Auto) U Hyaline Cast (Auto) Urine Bacteria (Auto) Squamous Epi Cells Auto Urine Mucus (Auto) Urine Ascorbic Acid Salicylates Cancelled Urine Opiates Screen Urine Methadone Screen Acetaminophen Cancelled Ur Barbiturates Screen Ur Phencyclidine Scrn Ur Amphetamines Screen U Benzodiazepines Scrn Urine Cocaine Screen U Marijuana (THC) Screen Serum Alcohol Cancelled 12/17/18 12/17/18 12/17/18 19:40 19:40 19:40 WBC RBC Hgb Hct MCV MCH MCHC RDW Plt Count Total Counted Seg Neutrophils % Seg Neuts % (Manual) Band Neutrophils % Lymphocytes % Lymphocytes % (Manual) Monocytes % Monocytes % (Manual) Eosinophils % Eosinophils % (Manual) Basophils % Basophils % (Manual) Absolute Neutrophils Abs Neuts (Manual) Absolute Lymphocytes Abs Lymphs (Manual) Absolute Monocytes Abs Monocytes (Manual) Absolute Eosinophils Absolute Eos (Manual) Absolute Basophils Abs Basophils (Manual) Clumped Platelets Platelet Comment RBC Morph Comment PT 13.2 INR 0.95 Carbonic Acid HCO3/H2CO3 Ratio ABG pH ABG pCO2 ABG pO2 ABG HCO3 ABG Total CO2 ABG O2 Saturation ABG Base Excess FiO2 Sodium 141.9 Potassium 7.0 H* Chloride 108 H Carbon Dioxide 23 Anion Gap 11 BUN 17 Creatinine 1.70 H Est GFR ( Amer) 53 L Est GFR (Non-Af Amer) 44 L Glucose 83 POC Glucose Calcium 7.7 L Total Bilirubin 1.2 Direct Bilirubin 0.5 H Neonat Total Bilirubin Not Reportable Neonat Direct Bilirubin Not Reportable Neonat Indirect Bili Not Reportable AST 1451 H ALT 403 H Alkaline Phosphatase 73 Creatine Kinase 655271 H Troponin I 0.990 Total Protein 6.9 Albumin 4.0 Urine Color Urine Appearance Urine pH Ur Specific [place] Urine Protein Urine Glucose (UA) Urine Ketones Urine Blood Urine Nitrite Urine Bilirubin Urine Urobilinogen Ur Leukocyte Esterase Urine WBC (Auto) Urine RBC (Auto) U Hyaline Cast (Auto) Urine Bacteria (Auto) Squamous Epi Cells Auto Urine Mucus (Auto) Urine Ascorbic Acid Salicylates < 1.0 L Urine Opiates Screen Urine Methadone Screen Acetaminophen < 10 L Ur Barbiturates Screen Ur Phencyclidine Scrn Ur Amphetamines Screen U Benzodiazepines Scrn Urine Cocaine Screen U Marijuana (THC) Screen Serum Alcohol < 10 Chest X-Ray 12/17/18 17:02 IMPRESSION: NO ACUTE RADIOGRAPHIC FINDING IN THE CHEST. Head CT 12/17/18 17:47 IMPRESSION: NORMAL BRAIN CT WITHOUT CONTRAST. EVIDENCE OF ACUTE STROKE: NO. - Vital Signs Vital signs: Temp Pulse Resp BP Pulse Ox 98.5 F 14 129/91 H 100 12/17/18 15:53 12/17/18 20:51 12/17/18 20:51 12/17/18 20:51 - Laboratory Result Diagrams: 12/17/18 16:19 12/17/18 19:40 Laboratory results interpreted by me: 12/17/18 12/17/18 12/17/18 15:55 16:19 17:10 WBC 19.2 H Seg Neuts % (Manual) 86 H Band Neutrophils % 6 H Lymphocytes % (Manual) 6 L Monocytes % (Manual) 2 L Abs Neuts (Manual) 17.7 H ABG pH ABG pO2 ABG HCO3 ABG Total CO2 ABG O2 Saturation Potassium Chloride Creatinine Est GFR ( Amer) Est GFR (Non-Af Amer) POC Glucose 56 L Calcium Direct Bilirubin AST ALT Creatine Kinase Urine Protein 100 H Urine Blood LARGE H Salicylates Acetaminophen 12/17/18 12/17/18 18:50 19:40 WBC Seg Neuts % (Manual) Band Neutrophils % Lymphocytes % (Manual) Monocytes % (Manual) Abs Neuts (Manual) ABG pH 7.24 L ABG pO2 161.2 H ABG HCO3 18.1 L ABG Total CO2 19.4 L ABG O2 Saturation 98.8 H Potassium 7.0 H* Chloride 108 H Creatinine 1.70 H Est GFR ( Amer) 53 L Est GFR (Non-Af Amer) 44 L POC Glucose Calcium 7.7 L Direct Bilirubin 0.5 H AST 1451 H ALT 403 H Creatine Kinase 025780 H Urine Protein Urine Blood Salicylates < 1.0 L Acetaminophen < 10 L - EKG Interpretation by Me Additional EKG results interpreted by me: EKG demonstrates sinus tachycardia with a ventricular rate of 124 bpm, normal axis, QTC 464 ms, there is no ST elevation, there are peaked T waves noted in leads V3 through V5. Procedures - Intubation Orotracheal Airway evaluation: Copious secretions, Loose teeth - Partial Denture Mallampati Classification: Class 2 Medications: Etomidate - 20mg, Other - Rocuronium 75mg Intubation method: Orotracheal Equipment used: Glidescope ETT size: 8.0 ETT secured at: Lips ETT secured at (cm): 23 Breath Sounds after Intubation: Equal End tidal CO2 confirmed: Yes Ventilator settings: SIMV Tidal volume: 450 FiO2: 40 Respirations: 12 Pressure support: 5 PEEP: 5 Post Intubation Xray: Yes Intubation Complications: No complications - Lumbar Puncture Lumbar puncture Consent obtained: No - Emergency Lumbar puncture pre-procedure: Sterile PPE donned, Betadine prep applied, Sterile drapes applied Patient position: Lying Needle size: 22 Lumbar puncture location: L5 Number of attempts: 2 Complications: No Notes: 12/17/18 21:47 2 attempts were made at obtaining CSF from this patient, and were unsuccessful unfortunately, and therefore the procedure was aborted, due to the patient being intubated, did not feel it was safe to place the patient in the upright position at this time, and reattempt. Critical Care Note - Critical Care Note Total time excluding time spent on procedures (mins): 120 Comments: Critical care time 120 minutes exclusive from separate billable procedures for a patient requiring complex medical decision making, and high potential for clinical deterioration. In a critical patient, with multiple medical issues including rhabdomyolysis, and STEMI, acute respiratory failure acute renal failure, hyperkalemia, and requiring transfer to tertiary institution. Time spent obtaining history from patient or surrogate, discussions with consultants, development of treatment plan with patient or surrogate, evaluation of patient's response to treatment, examination of patient, ordering and performing treatments and interventions, ordering and review of laboratory studies, re- evaluation of patient's condition, ordering and review of radiographic studies and review of old charts Discharge - Discharge Clinical Impression: Acute encephalopathy, Hyperkalemia, NSTEMI (non-ST elevated myocardial infarction), Substance use disorder, Transaminitis Acute respiratory failure Qualifiers: Respiratory failure complication: unspecified whether with hypoxia or hypercapnia Qualified Code(s): J96.00 - Acute respiratory failure, unspecified whether with hypoxia or hypercapnia Opiate overdose Qualifiers: Encounter type: initial encounter Injury intent: undetermined intent Qualified Code(s): T40.604A - Poisoning by unspecified narcotics, undetermined, initial encounter Rhabdomyolysis Qualifiers: Rhabdomyolysis type: non-traumatic Qualified Code(s): M62.82 - Rhabdomyolysis Acute renal failure Qualifiers: Acute renal failure type: unspecified Qualified Code(s): N17.9 - Acute kidney failure, unspecified Condition: Critical Disposition: [facility]
[2018-12-17] MEDS ORDERED: LORAZEPAM INJ 2 MG/1 ML VIAL IV ONE ×2 (16:24→16:55)
[2018-12-17] MEDS ORDERED: NALOXONE HCL INJ 2 MG/2 ML DISP.SYRIN IV ONE ×2 (16:54→18:32)
[2018-12-17] MEDS ORDERED: NALOXONE HCL INJ/PF 0.4 MG/1 ML SDV ONE (16:55)
[2018-12-17 17:23] LABS: HEMOGLOBIN 16.1 g/dL (13.5-17.0); MEAN CORPUSCULAR HEMOGLOBIN 29.5 pg (27.0-33.4); MEAN CORPUSCULAR HGB CONC 32.9 g/dL (32.0-36.0); MEAN CORPUSCULAR VOLUME 90 fl (80-97); PLATELET COUNT 337 10^3/uL (150-450); RED BLOOD COUNT 5.47 10^6/uL (4.35-5.55); RED CELL DISTRIBUTION WIDTH 12.9 % (11.5-14.0); WHITE BLOOD COUNT 19.2 10^3/uL (4.0-10.5)
--- NOTE | 2018-12-17 17:27 | RADIOLOGY REPORT (SQ) ---
EXAM DESCRIPTION: CHEST SINGLE VIEW COMPLETED DATE/TIME: 12/17/2018 5:16 pm REASON FOR STUDY: shortness of breath COMPARISON: 09/26/2018 EXAM PARAMETERS: NUMBER OF VIEWS: One view. TECHNIQUE: Single frontal radiographic view of the chest acquired. RADIATION DOSE: NA LIMITATIONS: None. FINDINGS: LUNGS AND PLEURA: No opacities, masses or pneumothorax. No pleural effusion. MEDIASTINUM AND HILAR STRUCTURES: No masses. Contour normal. HEART AND VASCULAR STRUCTURES: Heart normal in size. Normal vasculature. BONES: No acute findings. HARDWARE: None in the chest. OTHER: No other significant finding. IMPRESSION: NO ACUTE RADIOGRAPHIC FINDING IN THE CHEST. TECHNICAL DOCUMENTATION: JOB ID: [id number] [employer]- All Rights Reserved Reading location - IP/workstation name: [email or web address]
[2018-12-17 17:37] LABS: ABSOLUTE LYMPHOCYTES# (MANUAL) 1.2 10^3/uL (0.5-4.7); ABSOLUTE MONOCYTES # (MANUAL) 0.4 10^3/uL (0.1-1.4); ABSOLUTE NEUTROPHILS# (MANUAL) 17.7 10^3/uL (1.7-8.2); BAND NEUTROPHILS % (MANUAL) 6 % (3-5); BASOPHILS % (MANUAL) 0 % (0-2); EOSINOPHILS % (MANUAL) 0 % (0-6); LYMPHOCYTES % (MANUAL) 6 % (13-45); MONOCYTES % (MANUAL) 2 % (3-13); SEGMENTED NEUTROPHILS % (MAN) 86 % (42-78); TOTAL CELLS COUNTED 100
[2018-12-17] MEDS ORDERED: ETOMIDATE INJ/PF 20 MG/10 ML SDV IV ONE ×2 (17:37→20:58)
[2018-12-17 17:38] LABS: PLATELET CLUMPS PRESENT; RBC MORPHOLOGY COMMENT NORMO-CYTIC/CHROMIC
[2018-12-17] MEDS ORDERED: PROPOFOL 0 MG/0 ML INFUS..BTL IV ONE (17:38)
[2018-12-17 17:48] LABS: APPEARANCE,URINE CLOUDY; BILIRUBIN,URINE NEGATIVE (NEGATIVE); COLOR,URINE YELLOW; GLUCOSE, URINE NEGATIVE (NEGATIVE); KETONES,URINE NEGATIVE (NEGATIVE); LEUKOCYTE ESTERASE,URINE NEGATIVE (NEGATIVE); NITRITE,URINE NEGATIVE (NEGATIVE); PROTEIN,URINE 100 mg/dL (NEGATIVE); URINE SPECIFIC GRAVITY 1.013; UROBILINOGEN,URINE NEGATIVE mg/dL (<2.0)
[2018-12-17] MEDS ORDERED: MIDAZOLAM HCL 50 MG/100 ML RTUINJ IV PRN (17:48)
[2018-12-17] MEDS ORDERED: DEXTROSE 5%-WATER 1000 ML 1,000 ML with SODIUM BICARBONATE 150 MEQ IV PRN ×4 (17:51→22:11)
[2018-12-17 17:59] LABS: URINE BARBITURATES SCREEN NEGATIVE; URINE BENZODIAZEPINES SCREEN NEGATIVE; URINE COCAINE SCREEN NEGATIVE; URINE MARIJUANA (THC) SCREEN NEGATIVE; URINE METHADONE SCREEN NEGATIVE; URINE PHENCYCLIDINE SCREEN NEGATIVE
[2018-12-17] MEDS ORDERED: SODIUM BICARBONATE 8.4% INJ 50 MEQ/50 ML DISP.SYRIN ONE ×2 (18:07→22:13)
[2018-12-17] MEDS ORDERED: LIDOCAINE 1% INJ-PF (10 MG/ML) 30 ML SDV INJ ONE (18:08)
[2018-12-17] MEDS ORDERED: RINGERS SOLUTION,LACTATED 1,000 ML IV ONE ×2 (18:10→19:43)
--- NOTE | 2018-12-17 18:24 | RADIOLOGY REPORT (SQ) ---
EXAM DESCRIPTION: CHEST SINGLE VIEW COMPLETED DATE/TIME: 12/17/2018 6:09 pm REASON FOR STUDY: NG TUBE PLACEMENT/ ETT PLACEMENT COMPARISON: 12/17/2018 EXAM PARAMETERS: NUMBER OF VIEWS: One view. TECHNIQUE: Single frontal radiographic view of the chest acquired. RADIATION DOSE: NA LIMITATIONS: None. FINDINGS: LUNGS AND PLEURA: No opacities, masses or pneumothorax. No pleural effusion. MEDIASTINUM AND HILAR STRUCTURES: No masses. Contour normal. HEART AND VASCULAR STRUCTURES: Heart normal in size. Normal vasculature. BONES: No acute findings. HARDWARE: Endotracheal tube has its tip 4 cm above the destiney. An NG tube extends inside the stomach . OTHER: No other significant finding. IMPRESSION: Tube placements as described. TECHNICAL DOCUMENTATION: JOB ID: [id number] [employer]- All Rights Reserved Reading location - IP/workstation name: [email or web address]
--- NOTE | 2018-12-17 19:03 | RADIOLOGY REPORT (SQ) ---
EXAM DESCRIPTION: CT HEAD WITHOUT COMPLETED DATE/TIME: 12/17/2018 6:54 pm REASON FOR STUDY: altered mental status COMPARISON: None. TECHNIQUE: Axial images acquired through the brain without intravenous contrast. Images reviewed wi th bone, brain and subdural windows. Additional sagittal and coronal reconstructions were generated. Images stored on PACS. All CT scanners at this facility use dose modulation, iterative reconstruction, and/or weight based d osing when appropriate to reduce radiation dose to as low as reasonably achievable (ALARA). [facility]: Dose Right [facility]: CareDose [facility]: Dose Right [facility]: Teradose 4D [facility]: Smart Standing Cloud RADIATION DOSE: CT Rad equipment meets quality standard of care and radiation dose reduction techniq ues were employed. CTDIvol: 53.2 mGy. DLP: 1044 mGy-cm. mGy. LIMITATIONS: None. FINDINGS: VENTRICLES: Normal size and contour. CEREBRUM: No masses. No hemorrhage. No midline shift. No evidence for acute infarction. Normal gra y/white matter differentiation. No areas of low density in the white matter. CEREBELLUM: No masses. No hemorrhage. No alteration of density. No evidence for acute infarction. EXTRAAXIAL SPACES: No fluid collections. No masses. ORBITS AND GLOBE: No intra- or extraconal masses. Normal contour of globe without masses. CALVARIUM: No fracture. PARANASAL SINUSES: No fluid or mucosal thickening. SOFT TISSUES: No mass or hematoma. OTHER: No other significant finding. IMPRESSION: NORMAL BRAIN CT WITHOUT CONTRAST. EVIDENCE OF ACUTE STROKE: NO. COMMENT: Quality ID # [id number]: Final reports with documentation of one or more dose reduction techniques (e.g., Automated exposure control, adjustment of the mA and/or kV according to patient size, use of iterative reconstruction technique) TECHNICAL DOCUMENTATION: JOB ID: [id number] [employer]- All Rights Reserved Reading location - IP/workstation name: [email or web address]
[2018-12-17] MEDS ORDERED: CEFTRIAXONE 2 GM/D5W RTU 2 GM/50 ML RTUPB IV ONE (19:24)
[2018-12-17] MEDS ORDERED: VANCOMYCIN HCL INJ 1000 MG VIAL IV ONE (19:25)
[2018-12-17 20:31] LABS: ARTERIAL BLOOD HCO3 18.1 mmol/L (20-24); ARTERIAL BLOOD O2 SATURATION 98.8 % (94-98); ARTERIAL BLOOD PCO2 43.1 mmHg (35-45); ARTERIAL BLOOD PH 7.24 (7.35-7.45); ARTERIAL BLOOD PO2 161.2 mmHg (80-100); ARTERIAL BLOOD TOTAL CO2 19.4 mmol/L (23-27)
[2018-12-17 20:32] LABS: ARTERIAL BLOOD FIO2 40%
[2018-12-17 20:35] LABS: INTERNATIONAL RATION (INR) 0.95; PROTHROMBIN TIME 13.2 SEC (11.4-15.4)
[2018-12-17 20:52] LABS: ALANINE AMINOTRANSFERASE 403 U/L (21-72); ALKALINE PHOSPHATASE 73 U/L (38-126); ANION GAP 11 (5-19); BILIRUBIN,DIRECT 0.5 mg/dL (0.0-0.4); BILIRUBIN,TOTAL 1.2 mg/dL (0.2-1.3); BLOOD UREA NITROGEN 17 mg/dL (7-20); CALCIUM 7.7 mg/dL (8.4-10.2); CARBON DIOXIDE 23 mmol/L (22-30); CHLORIDE 108 mmol/L (98-107); GLUCOSE 83 mg/dL (75-110); SODIUM 141.9 mmol/L (137-145); TOTAL PROTEIN 6.9 g/dL (6.3-8.2)
[2018-12-17] MEDS ORDERED: ROCURONIUM BROMIDE INJ 50 MG/5 ML VIAL IV ONE ×2 (20:58→21:57)
[2018-12-17 21:19] LABS: ACETAMINOPHEN < 10 ug/mL (10-30); ALCOHOL < 10 mg/dL (NONE DETECTED); ASPARTATE AMINO TRANSFERASE 1451 U/L (17-59); SALICYLATE < 1.0 mg/dL (2.0-20.0)
[2018-12-17] MEDS ORDERED: SODIUM BICARBONATE 8.4% INJ 50 MEQ/50 ML DISP.SYRIN IV ONE (21:22)
[2018-12-17] MEDS ORDERED: INSULIN REG, HUMAN 100 UNIT/ML 3 ML VIAL (PYX) IV ONE (21:22)
[2018-12-17] MEDS ORDERED: CALCIUM GLUCONATE 1000 MG/10 ML INJ IV ONE (21:23)
[2018-12-17 21:27] LABS: CREATINE KINASE 109702 U/L (55-170)
--- NOTE | 2018-12-17 22:21 | EKG REPORT ---
SEVERITY:- ABNORMAL ECG - SINUS TACHYCARDIA CONSIDER HYPERKALEMIA. : Confirmed by: Johnny Solitario MD 17-Dec-2018 22:20:57
[2018-12-17 22:39] VITALS: BP 138/103
== END 2018-12-18 00:40 | disposition short-term general hospital (02) ==
LOC: ER 15:48
PROC: 00JU3ZZ Inspection of Spinal Canal, Percutaneous Approach (ICD-10-PCS; principal; 2018-12-17)
PROC: 0BH17EZ Insertion of Endotracheal Airway into Trachea, Via Natural or Artificial Opening (ICD-10-PCS; 2018-12-17)
DX: J96.00 Acute respiratory failure, unspecified whether with hypoxia or hypercapnia (principal); T40.604A Poisoning by unspecified narcotics, undetermined, initial encounter; G93.40 Encephalopathy, unspecified; I21.4 Non-ST elevation (NSTEMI) myocardial infarction; M62.82 Rhabdomyolysis; N17.9 Acute kidney failure, unspecified; F11.10 Opioid abuse, uncomplicated; F15.10 Other stimulant abuse, uncomplicated; F17.200 Nicotine dependence, unspecified, uncomplicated; F32.9 Major depressive disorder, single episode, unspecified
CPT/HCPCS: 93005; 36415; 87040; 82962; 80307 ×5; 82803; 82550; 83735; 85025; 85610; 87077; 80053; 81001; 84484; 71045; 70450; 93010; 36600; 94002; 62270; 31500; G0480; J0610; J3490 ×3; J2060; J1815; J2310; J2250; J7060; J7030; J7120; J3370; J0696; 94660